=== PATIENT | male | born 1970 | race Caucasian/White ===

== ENCOUNTER 2017-07-15 01:31 | Observation (INO) ==
[2017-07-15] MEDS ORDERED: ASPIRIN 81 MG CHEWABLE TABLET PO ONE (01:44)
[2017-07-15] MEDS: NITROGLYCERIN 0.4 MG SUBLINGUAL TABLET SL PRN ×3 (01:46→02:27)
--- NOTE | 2017-07-15 01:51 | Emergency Department Report ---
Chest Pain HPI - General Chief Complaint: Chest Pain Stated Complaint: chest pains, shortness of breath Time Seen by Provider: 07/15/17 01:44 Source: patient Mode of arrival: ambulatory Limitations: no limitations - History of Present Illness HPI narrative: Patient is a 47-year-old male, prior stenting 2006 by report. Patient has a history of Brugada syndrome, however states that current geospatial scientist does not believe the diagnosis and they're taking his defibrillator out in September, it is currently turned off. Patient does have a history of cath after 2006, stating that his stent was "blocked". Patient presents to the ER for evaluation of chest pain. Patient's is in the hospital post hysterectomy, patient was sitting developed sudden anterior chest pain/pressure across his anterior chest no nausea no diaphoresis. Patient came immediately to the ER for evaluation currently complaining of 7/10 pain. Pain does not radiate to neck shoulders or back. Patient states he does have a history of pancreatitis, was hospitalized at [facility] a week ago. MD complaint: chest pain Occurred At: home Onset (ago): minute(s) Duration: constant Onset: during rest Pain location: substernal, left chest, right chest Severity: moderate Severity scale (1-10): 8 Relieving factors: nitroglycerin Aspirin Today: 81 mg x 4, provided by ED Nitro Today: 0.4 mg x 2, complete relief - Related Data Home Medications Medication Instructions Recorded Confirmed Ativan (lorazepam) 1 mg tablet 1 mg PO Q12H PRN 05/25/17 07/15/17 Glucophage (metformin) 1,000 mg 1,000 mg PO BID 05/25/17 07/15/17 tablet Lantus (insulin glargine) 100 18 unit SQ HS ml 05/25/17 07/15/17 unit/mL SQ Lipitor (atorvastatin) 10 mg tablet 80 mg PO HS 05/25/17 07/15/17 Novolog (insulin aspart) 100 12 units SQ TID 05/25/17 07/15/17 unit/mL Plavix (clopidogrel) 75 mg tablet 75 mg PO DAILY 05/25/17 07/15/17 Prilosec (Omeprazole) 20 mg 20 mg PO DAILY 05/25/17 07/15/17 capsule,delayed release Ultram (Tramadol) 50 mg tablet 50 mg PO PRN PRN 05/25/17 07/15/17 aspirin 81 mg tablet,delayed 1 tab PO DAILY 05/25/17 07/15/17 release cyclobenzaprine 5 mg tablet 5 mg PO PRN PRN 05/25/17 07/15/17 Pregabalin Cap [Lyrica] 25 mg PO DAILY 07/15/17 07/15/17 Allergies Allergy/AdvReac Type Severity Reaction Status Date / Time penicillin G Allergy Verified 07/15/17 01:56 Review of Systems Constitutional: Denies: fever, chills, weakness, weight change Eyes: Denies: eye pain, eye discharge ENT: Denies: ear pain, throat pain, dental pain Cardiovascular: Reports: chest pain, dyspnea on exertion Respiratory: Reports: dyspnea. Denies: cough, wheezes Gastrointestinal: Denies: abdominal pain, nausea, vomiting Musculoskeletal: Denies: back pain Neurological: Denies: headache, weakness, numbness Psychiatric: Denies: anxiety, depression, suicidal thoughts Endocrine: Denies: fatigue, heat or cold intolerance Hematological/Lymphatic: Denies: easy bleeding, easy bruising PFSH Patient Stated Medical History Cerebrovascular Accident Yes Other Cardiology BRUGADA SYNDROME Diabetes Mellitus Type 1 Yes Clinic Medical History (Last Reviewed 05/24/17 @ 17:35 by Stepan Conroy MD) Chest pain, rule out acute myocardial infarction (Acute Medical) Diabetes (Chronic Medical) High cholesterol (Chronic Medical) Medical History Updates: By patient's report hypertension hypercholesterolemia Surgical History: heart stent, scapula bone spur removed, rusty knee arthroscopy, tonsillectomy, Family History: Family History (Last Reviewed 05/24/17 @ 17:35 by Stepan Conroy MD) Mother Heart attack Heart failure - Social History Smoking status: Former smoker Substance use type: does not use Alcohol intake frequency: does not drink Physical Exam - General General appearance: alert, in no apparent distress - Eye Eye exam: Present: normal appearance - ENT ENT exam: Present: normal exam, normal oropharynx - Neck Neck exam: Present: full ROM, trachea midline. Absent: tenderness - Chest Chest inspection: Present: symmetric chest wall rise. Absent: tenderness, rash - Respiratory Respiratory exam: Present: normal lung sounds bilaterally. Absent: respiratory distress, wheezes, stridor - Cardiovascular Cardiovascular exam: Present: regular rate, normal rhythm, normal heart sounds - Abdominal Exam Abdominal exam: Present: soft, normal bowel sounds. Absent: distention, tenderness - Back Exam Back exam: Present: full ROM. Absent: tenderness, CVA tenderness (R), CVA tenderness (L), muscle spasm - Skin Skin exam: Present: warm, dry - Neurological Exam Neurological exam: Present: alert, oriented X3 - Psychiatric Psychiatric exam: Present: normal affect, normal mood Course Vital Signs Temperature 98.2 F 07/15/17 01:33 Pulse Rate 87 07/15/17 01:33 Respiratory Rate 15 07/15/17 01:33 Blood Pressure 158/92 H 07/15/17 01:33 Pulse Oximetry 96 07/15/17 01:33 Temperature 97.8 F 07/15/17 03:21 Pulse Rate 80 07/15/17 03:21 Respiratory Rate 16 07/15/17 03:21 Blood Pressure 126/71 07/15/17 03:21 Pulse Oximetry 96 07/15/17 03:21 Chest Pain - MDM Narrative Medical decision making narrative: Patient's chest pain alleviated by nitroglycerin, patient has multiple risk factors, discussed case with Dr. Eli will admit observation status nitroglycerin paste - Differential Diagnosis Likely: fracture of rib, pneumothorax, stable angina, unstable angina pectoris, atypical chest pain, st elevation myocardial infarction, costochondritis, chest pain, biliary colic - Medical Records Data Attestation: I reviewed the patient's medical records. - Lab Data Attestation: I reviewed the patient's lab results. Result diagrams: 07/15/17 01:45 07/15/17 01:45 Lab Results 07/15/17 07/15/17 07/15/17 Range/Units 01:45 01:45 01:45 WBC 5.8 (4.5-11.0) T/MM3 RBC 4.84 (4.50-5.90) M/MM3 Hgb 12.9 L (13.5-17.5) GM/DL Hct 39.4 L (41-53) % MCV 81.4 (80-100) UM3 MCH 26.7 (26-34) UUG MCHC 32.7 (31-37) GM/DL RDW Std Deviation 39.3 (36.9-50.2) FL Plt Count 176 (130-400) T/MM3 MPV 11.6 (9.4-12.4) UM3 Immature Gran % (Auto) 0.3 (0.0-0.5) % Neut % (Auto) 46.4 (33-66) % Lymph % (Auto) 34.5 (23-45) % Whitley % (Auto) 12.4 H (0-9.0) % Eos % (Auto) 5.2 H (0-4) % Baso % (Auto) 1.2 (0-2) % Neut # (Auto) 2.7 (1.8-7.7) T/MM3 Lymph # (Auto) 2.0 (1-4.8) T/MM3 Whitley # (Auto) 0.7 (0-0.8) T/MM3 Eos # (Auto) 0.3 (0-0.5) T/MM3 Baso # (Auto) 0.1 (0-0.2) T/MM3 Abs Immat Gran (auto) 0.02 (0.00-0.03) T/MM3 D-Dimer < 150 (0-230) NG/ML Turbidity < 20 (0-20) Sodium 140 (134-144) MEQ/L Potassium 3.8 (3.6-5) MEQ/L Chloride 103 (98-107) MEQ/L Carbon Dioxide 26 (22-30) MEQ/L Anion Gap 11 (5-15) MEQ/L BUN 17.0 (9-20) MG/DL Creatinine 0.6 L (0.8-1.5) MG/DL GFR Calculation 143 BUN/Creatinine Ratio 28 H (6-26) RATIO Glucose 219 H (75-110) MG/DL Calculated Osmolality 278 (261-280) MOSM/KG Calcium 9.0 (8.4-10.2) MG/DL Magnesium 1.8 (1.6-2.3) MG/DL Total Bilirubin 0.40 (0.20-1.30) MG/DL Icterus Index < 2 (0-7) AST 25 (17-59) U/L ALT 47 (21-72) U/L Alkaline Phosphatase 159 H (38-126) U/L Troponin I < 0.012 (0-0.12) ng/ml B-Natriuretic Peptide 21.2 (0-175) pg/mL Total Protein 7.5 (6.3-8.2) G/DL Albumin 4.1 (3.5-5.0) G/DL Globulin 3.4 (2.4-3.6) G/DL Albumin/Globulin Ratio 1.2 (1.1-2.2) RATIO Lipase 153 (23-300) U/L TSH 4.00 (0.47-4.68) MIU/L Specimen Hemolysis 32 H (0-25) - Radiology Data Attestation: I reviewed the patient's radiology results. No acute cardiopulmonary findings - EKG Data EKG #1 EKG attestation: Yes: I reviewed and interpreted this EKG. EKG shows normal: sinus rhythm, axis, intervals, QRS complexes, ST-T waves Disposition Clinical Impression: Chest pain, rule out acute myocardial infarction Disposition: 02 To [facility] Condition: Improved Time of Disposition: 02:54 - Seen By: physician
--- OUTSIDE RECORDS SUMMARY | 2017-07-15 02:01 | External Medical Summary ---
:1970 Author Organization eClinicalWorks Care Team Providers Name Role Phone Ar Knutson Provider Role Unavailable Allergies, Adverse Reactions, Alerts Substance Reaction Event Type Simvastatin dizziness Drug Allergy Penicillins rash Non Drug Allergy Sertraline anxious Non Drug Allergy Problems Problem Type Condition ICD-9 Code Onset Dates Condition Status Problem Generalized anxiety disorder 300.02 Active Problem Brugada syndrome 746.89 Active Problem Type II diabetes mellitus, 250.02 Active uncontrolled Problem Mixed hyperlipidemia 272.2 Active Assessment Health examination of defined V70.5 Active subpopulation Medications Medication Code System Code Instructions Start End Date Status Dosage Date Metformin HCl [facility] 17503-991 1000 MG Orally Active 1 tablet 4-01 Twice a day with meals GlipiZIDE [facility] 53391-285 10 MG Once a Active 1 tablet 0-00 day Digoxin [facility] 07787-458 0.25 MG Orally Apr 18, Active 1 tablet 2-01 Once a day 2013 Nicotine Step [address] [facility] 60325-622 21 MG/24HR Active 1 patch to 75 Transdermal Once skin a day Procedures Procedure Coding System Code Date UA- PART OF DOT CPT-4 66301 May 28, 2014 DOT PHYSICAL CPT-4 76715 May 28, 2014 Vital Signs Date/Time: May 28, 2014 BMI 31.13 Index Weight 198.8 lbs Height 67 in Blood Pressure Diastolic 74 mm Hg Blood Pressure Systolic 120 mm Hg Cardiac Monitoring Heart Rate 76 /min Temperature 98.4 F Respiratory Rate 20 /min Results No Known Results Summary Purpose eClinicalWorks Submission
--- OUTSIDE RECORDS SUMMARY | 2017-07-15 02:03 | External Medical Summary ---
:1970 Author Organization eClinicalWorks Care Team Providers Name Role Phone Brenna Archer Provider Role Unavailable Allergies, Adverse Reactions, Alerts Substance Reaction Event Type Simvastatin dizziness Drug Allergy Sertraline HCl anxiety Drug Allergy Penicillin G Potassium rash Drug Allergy Problems Problem Type Condition ICD-9 Code Onset Dates Condition Status Assessment Tobacco use 305.1 Active Assessment Generalized anxiety disorder 300.02 Active Assessment Brugada syndrome 746.89 Active Problem Type II diabetes mellitus, 250.02 Active uncontrolled Problem Generalized anxiety disorder 300.02 Active Problem Tobacco use 305.1 Active Assessment Type II diabetes mellitus, 250.02 Active uncontrolled Assessment Mixed hyperlipidemia 272.2 Active Problem Brugada syndrome 746.89 Active Problem Mixed hyperlipidemia 272.2 Active Medications Medication Code System Code Instructions Start End Date Status Dosage Date Metformin HCl [facility] 82393-366 1000 MG Orally 1 tablet 4-01 [place] [address]-551 0.25 MG Orally Apr 18, 1 tablet 2-01 Once a day 2013 GlipiZIDE [facility] 73424-135 10 MG Orally 1 tablet 0-00 twice a day Procedures Procedure Coding System Code Date OFFICE VISIT EST PATIENT LEVEL 3 CPT-4 75811 December 05, 2014 GLYCOSYLATED HEMOGLOBIN TEST CPT-4 91115 December 05, 2014 Vital Signs Date/Time: December 05, 2014 BMI 29.91 Index Weight 191.0 lbs Height 67 in Blood Pressure Diastolic 80 mm Hg Blood Pressure Systolic 134 mm Hg Cardiac Monitoring Heart Rate 80 /min Temperature 98.4 F Respiratory Rate 18 /min Results No Known Results Summary Purpose eClinicalWorks Submission
--- OUTSIDE RECORDS SUMMARY | 2017-07-15 02:06 | External Medical Summary ---
:1970 Author Name GENERATED, SYSTEM Care Team Providers Name Role Phone DO BARKER MICHAEL Primary Care Provider [phone] Reason For Visit Chief Complaint FATIGUE, ACHES, HIGH BS Social History Functional Status Vital Signs Results Blood Gas from 06/18/2017 6:53 PM*ARTERIAL PH7.408 (7.350-7.450 ) *ARTERIAL IU9243.2 MM HG (35.0-45.0 MM HG) *ART. PO273 MM HG L (80-95 MM HG) *ART. TOTAL CO221.5 mmol/L (20.0-30.0 mmol/L) *ART. CFPBJCDOHOK55.3 MEQ/L (19.0-29.0 MEQ/L) *ART. BASE EXCESS0.2 (-2.5-2.5 ) ART. O2 JUNLIYEVDW81.5 % (91.0-97.0 %) *PATIENT ATMOSPHEREROOM AIR (Reference Range: not available) *SPECIMEN SITEARTERIAL (Reference Range: not available) Blood Gas from 06/18/2017 6:35 PM*VENOUS PH7.434 H (7.320-7.430 ) VENOUS KZV262.2 MM HG L (38.0-50.0 MM HG) *VENOUS QR5239 MM HG H (38-42 MM HG) *VENOUS NKB543.4 mmol/L L (23.0-30.0 mmol/L) CORRIE. PVGUDVMSUXG29.2 MEQ/L (22.0-29.0 MEQ/L) *CORRIE. BASE EXCESS-0.1 (-3.0-3.0 ) CORRIE. O2 LMWYAXQMWR73.4 % H (70.0-80.0 %)Chemistry from 06/18/2017 6:35 [id number] MMOL/L L (136-145 MMOL/L) POTASSIUM4.2 MMOL/L (3.5-5.1 MMOL/L) IDWSWBGL544 MMOL/L (98-107 MMOL/L) OMG866.5 MMOL/L (21.0-32.0 MMOL/L) *ANION GAP8.5 MMOL/L (8.0-16.0 MMOL/L) BUN17 MG/DL (7-18 MG/DL) CREATININE0.99 MG/DL (0.70-1.30 MG/DL) *BUN/CREATININE RATIO17.2 H (9.1-17.0 ) BSXWNWH667 MG/DL H (65-99 MG/DL) *GFR EST NON AFR GBKSDOGG26 ML/MIN (Reference Range: not available) *GFR EST AFR AMER>90 ML/MIN (Reference Range: not available) CALCIUM8.7 MG/DL (8.5-10.1 MG/DL) BILIRUBIN TOTAL0.40 MG/DL (0.20-1.00 MG/DL) TOTAL PROTEIN7.3 GM/DL (6.4-8.2 GM/DL) ALBUMIN3.7 GM/DL (3.4-5.0 GM/DL) *GLOBULIN3.6 GM/DL H (2.3-3.5 GM/DL) *A/G RATIO1.0 L (1.5-2.2 ) ALK AQGQ698 U/L H (46-116 U/L) ALT (SGPT)45 U/L (14-59 U/L) AST (SGOT)27 U/L (15-37 U/L) *SODIUM, [id number] MMOL/L (136-145 MMOL/L) *OSMOLALITY, HAFVTEFJBF971 MOSM/KG (278-305 MOSM/KG) MAGNESIUM1.8 MG/DL (1.8-2.4 MG/DL) PHOSPHORUS3.6 MG/DL (2.6-4.7 MG/DL) TROPONIN-I<0.017 NG/ML (0.000-0.056 NG/ML) KETONE (B-HYDROXY) WB<0.6 MMOL/L (-<0.6 MMOL/L)Hematology from 06/18/2017 6:35 PMWBC5.3 X10e3/UL (3.6-11.2 X10e3/UL) RBC5.14 X10e6/UL (4.06-5.63 X10e6/UL) IRQIULYTIR86.7 G/DL (12.5-16.3 G/DL) BBESFLAOQT00.8 % (36.7-47.1 %) *MCV81.4 FL (80.0-100.0 FL) *MCH26.7 PG L (27.0-33.0 PG) *MCHC32.8 G/DL (32.0-36.0 G/DL) *RDW13.8 % (12.3-17.0 %) *RDWSD39.4 (37.1-47.8 ) SLMGYKEX939 X10e3/UL L (159-386 X10e3/UL) *MPV10.8 FL H (7.4-10.4 FL) AUTOMATED DIFFPERFORMED (Reference Range: not available) SEGS60.1 % (Reference Range: not available) *ZYSQWVOYNTG92.3 % (Reference Range: not available) *LIJENVSIK57.0 % (Reference Range: not available) *EOSINOPHILS3.1 % (Reference Range: not available) *BASOPHILS2.5 % (Reference Range: not available) *ABSOLUTE NEUTROPHILS3.20 X10e3/UL (1.80-7.80 X10e3/UL) *ABSOLUTE LYMPHOCYTES1.30 X10e3/UL (1.00-3.00 X10e3/UL) *ABSOLUTE MONOCYTES0.50 X10e3/UL (0.30-1.00 X10e3/UL) *ABSOLUTE EOSINOPHILS0.20 X10e3/UL (0.00-0.50 X10e3/UL) *ABSOLUTE BASOPHILS0.10 X10e3/UL (0.00-0.20 X10e3/UL)Urinalysis from 06/18/2017 7:00 PM*URINE COLORYELLOW (STRAW/YELL/DK YELL ) *URINE APPEARANCECLEAR (CLEAR ) URINE PH5.5 (5.0-8.0 ) URINE SPECIFIC GRAVITY1.010 (<=1.005->=1.030 ) *URINE GLUCOSE>1000 MG/DL A (NEGATIVE MG/DL) *URINE BILIRUBINNEGATIVE (NEGATIVE ) *URINE KETONESNEGATIVE MG/DL (NEGATIVE MG/DL) *URINE BLOODNEGATIVE (NEGATIVE ) *URINE PROTEINNEGATIVE MG/DL (NEGATIVE MG/DL) *URINE UROBILINOGEN0.2 EU/DL (0.2-1.0 EU/DL) *URINE NITRITESNEGATIVE (NEGATIVE ) *URINE LEUKOCYTESNEGATIVE (NEGATIVE ) Problems Encounter Diagnosis No relevant problems exist. Additional Problems Abdominal Bloating Comment:Problem resolved by [facility] Workflow upon Discharge, Status:Resolved.Acute Pain Comment:Problem resolved by [facility] Workflow upon Discharge, Status:Resolved.Acute Pain Comment:Problem resolved by [facility] Workflow upon Discharge, Status:Resolved.Acute Pain Comment:Problem resolved by [facility] Workflow upon Discharge, Status:Resolved.Acute Pain Comment:Problem resolved by [employer] Workflow upon Discharge, Status:Resolved.Anxiety Comment: Problem resolved by [employer] Workflow upon Discharge, Status:Resolved.Blood Glucose Abnormal Comment:Problem resolved by [employer] Workflow upon Discharge, Status:Resolved.Cerebrovascular Accident Comment:Problem resolved by [employer] Workflow upon Discharge, Status:Resolved.Chest Pain Comment:Problem resolved by [employer] Workflow upon Discharge, Status:Resolved.Chest Pain Comment:Problem resolved by [employer] Workflow upon Discharge, Status:Resolved.Chest Pain Comment: Problem resolved by [employer] Workflow upon Discharge, Status:Resolved.Chest Pain Comment:Problem resolved by [employer] Workflow upon Discharge, Status: Resolved.Chronic Pain Comment:Problem resolved by [employer] Workflow upon Discharge, Status:Resolved.Chronic Pancreatitis Comment:Problem resolved by [employer] Workflow upon Discharge, Status:Resolved.Diabetes Mellitus Comment: Problem resolved by [employer] Workflow upon Discharge, Status:Resolved.Epigastric Pain Comment:Problem resolved by [employer] Workflow upon Discharge, Status: Resolved.Fall Risk Comment:Problem resolved by [employer] Workflow upon Discharge, Status:Resolved.Fall Risk Comment:Problem resolved by [employer] Workflow upon Discharge, Status:Resolved.Fall Risk Comment:Problem resolved by [employer] Workflow upon Discharge, Status:Resolved.Fall Risk Comment:Problem resolved by [employer] Workflow upon Discharge, Status:Resolved.Fall Risk Comment:Problem resolved by [employer] Workflow upon Discharge, Status:Resolved.History of Hypertension Comment:Problem resolved by [employer] Workflow upon Discharge, Status :Resolved.History of Hypertension Comment:Problem resolved by [employer] Workflow upon Discharge, Status:Resolved.History of Raised Blood Lipids Comment:Problem resolved by [employer] Workflow upon Discharge, Status:Resolved.Hx CAD w/ Stent Placement Comment:Problem resolved by [employer] Workflow upon Discharge, Status: Resolved.Mobility Impairment Comment:Problem resolved by [employer] Workflow upon Discharge, Status:Resolved.Mobility Impairment Comment:Problem resolved by [employer] Workflow upon Discharge, Status:Resolved.Mobility Impairment Comment: Problem resolved by [employer] Workflow upon Discharge, Status:Resolved.Nausea &amp ; Vomiting Comment:Problem resolved by [facility] Workflow upon Discharge, Status: Resolved. Encounters Encounter Diagnosis No relevant problems exist. Plan of Care Procedures Completed Procedure Code: [id number] Procedure Name: not valued, on 10/28/2016 12: 00 AM Immunizations No immunizations administered or ordered. Hospital Course Hospital Discharge Instructions Allergies, Adverse Reactions, Alerts This section is printing sales representative of the current allergy information, at the time of the CCD generation. In the case of regeneration of the CCD, the allergy information may not reflect the state of known allergies at the time of the CCD' s subject visit. simvastatin causes disoriented, looses balance.Penicillins causes Moderate Hives. Onset unknown.Latex Allergy has not been assessed.IV Contrast Allergy has not been assessed.No Known Food Allergies. Medication Medication reconciliation has not been performed.
--- OUTSIDE RECORDS SUMMARY | 2017-07-15 02:06 | External Medical Summary ---
:1970 Author Organization eClinicalWorks Care Team Providers Name Role Phone Brenna Archer Provider Role Unavailable Allergies No Known Allergies Problems Problem Type Condition ICD-9 Code Onset Dates Condition Status Problem Generalized anxiety disorder 300.02 Active Problem Brugada syndrome 746.89 Active Problem Type II diabetes mellitus, 250.02 Active uncontrolled Problem Smoker 305.1 Active Problem Mixed hyperlipidemia 272.2 Active Medications Medication Code System Code Instructions Start End Date Status Dosage Date Metformin HCl [facility] 97745-568 1000 MG Orally 1 tablet 4-01 Twice a day with meals Results No Known Results Summary Purpose eClinicalWorks Submission
--- OUTSIDE RECORDS SUMMARY | 2017-07-15 02:06 | External Medical Summary ---
:1970 Author Organization eClinicalWorks Care Team Providers Name Role Phone Brenna Archer Provider Role Unavailable Allergies No Known Allergies Problems Problem Type Condition Code Onset Dates Condition Status Problem Brugada syndrome I49.8 Active Problem Hypertriglyceridemia E78.1 Active Problem DM type 2 (diabetes mellitus, type E11.9 Active 2) Problem Tobacco use 305.1 Active Problem Generalized anxiety disorder 300.02 Active Medications Medication Code System Code Instructions Start Date End Date Status Dosage [facility] [address] 10 MG Orally 1 tablet -00 twice a day Results No Known Results Summary Purpose eClinicalWorks Submission
--- OUTSIDE RECORDS SUMMARY | 2017-07-15 02:06 | External Medical Summary ---
:1970 Author Organization eClinicalWorks Care Team Providers Name Role Phone [address] Lane Provider Role Unavailable Allergies, Adverse Reactions, Alerts Substance Reaction Event Type Penicillin Info Not Available Drug Allergy Simvastatin Info Not Available Drug Allergy Problems Problem Type Condition ICD-9 Code Onset Dates Condition Status Assessment Brugada Syndrome 746.89 Active Problem Dyslipidemia 272.4 Active Problem Family history of ischemic heart V17.3 Active disease Problem s/p stenting, coronary V45.82 Active Problem Chest pain 786.50 Active Problem Coronary Artery Disease 414.01 Active Problem Brugada Syndrome 746.89 Active Problem Obesity, unspecified 278.00 Active Problem Shortness Of Breath 786.05 Active Problem Diabetes Mellitus, Type II, Not 250.00 Active Stated As Uncontrolled Assessment Obesity, unspecified 278.00 Active Assessment Dyslipidemia 272.4 Active Assessment Diabetes Mellitus, Type II, Not 250.00 Active Stated As Uncontrolled Assessment Chest pain 786.50 Active Assessment Shortness Of Breath 786.05 Active Assessment Family history of ischemic heart V17.3 Active disease Medications Medication Code System Code Instructions Start Date End Date Status Dosage GlipiZIDE [facility] 85131-941 10 mg Orally 1 tablet 0-10 Twice a day Metformin HCl [facility] 53249-011 1000 mg Orally 1 tablet 4-01 Twice a day Procedures Procedure Coding System Code Date Office Visit, New Pt., Level 4 CPT-4 38708 Apr 06, 2015 ELECTROCARDIOGRAM, COMPLETE CPT-4 79901 Apr 06, 2015 Vital Signs Date/Time: Apr 06, 2015 BMI 30.79 Index Weight 196.6 lbs Height 5 ft 7 in in Cardiac Monitoring Heart Rate 100 /min Oximetry 98% % Blood Pressure Diastolic 74 mm Hg Blood Pressure Systolic 128 mm Hg Results Name Result Date Reference Range Unit Abnormality Flag Atria ECG Summary Purpose eClinicalWorks Submission
--- OUTSIDE RECORDS SUMMARY | 2017-07-15 02:07 | External Medical Summary ---
:1970 Author Organization eClinicalWorks Care Team Providers Name Role Phone Calixto Lane Provider Role Unavailable Allergies, Adverse Reactions, Alerts Substance Reaction Event Type Penicillin Info Not Available Drug Allergy Simvastatin Info Not Available Drug Allergy Problems Problem Type Condition Code Onset Dates Condition Status Assessment Brugada [...] Instructions Start Date End Date Status Dosage Metformin HCl [facility] 10421-851 1000 mg Orally 1 tablet 4-01 Twice a day GlipiZIDE [facility] 62174-610 10 mg Orally 1 tablet 0-10 Twice a day Procedures Procedure Coding System Code Date Office Visit, Est Pt., Level 3 CPT-4 44266 Sep 10, 2015 Ofc Program ICD Dual, Staff CPT-4 53437 Sep 10, 2015 ELECTROCARDIOGRAM, COMPLETE CPT-4 66033 Sep 10, 2015 Vital Signs Date/Time: Sep 10, 2015 BMI 29.57 Index Weight 188.8 lbs Height 5 ft 7 in in Cardiac Monitoring Heart Rate 87 /min Oximetry 98% % Blood Pressure Diastolic 68 mm Hg Blood Pressure Systolic 118 mm Hg Results Name Result Date Reference Range Unit Abnormality Flag Atria ECG Summary Purpose eClinicalWorks Submission
--- OUTSIDE RECORDS SUMMARY | 2017-07-15 02:07 | External Medical Summary ---
:1970 Author Organization eClinicalWorks Care Team Providers Name Role Phone Brenna Archer Provider Role Unavailable Allergies, Adverse Reactions, Alerts Substance Reaction Event Type Simvastatin dizziness Drug Allergy Sertraline HCl anxiety Drug Allergy Penicillin G Potassium rash Drug Allergy Problems Problem Type Condition Code Onset Dates Condition Status Assessment Hypertriglyceridemia E78.1 Active Assessment Right groin pain R10.30 Active Problem Brugada syndrome I49.8 Active Problem Hypertriglyceridemia E78.1 Active Problem DM type 2 (diabetes mellitus, type E11.9 Active 2) Assessment DM type 2 (diabetes mellitus, type E11.9 Active 2) Assessment Brugada syndrome I49.8 Active Problem Tobacco use 305.1 Active Problem Generalized anxiety disorder 300.02 Active Medications Medication Code System Code Instructions Start End Date Status Dosage Date Digoxin [facility] 41120-863 0.25 MG Orally Apr 18, 1 tablet 2-01 Once a day 2013 GlipiZIDE [facility] 38614-395 10 MG Orally 1 tablet 0-00 twice a day Metformin HCl [facility] 91801-675 1000 MG Orally 1 tablet 4-01 Twice a day with meals Procedures Procedure Coding System Code Date OFFICE VISIT EST PATIENT LEVEL 3 CPT-4 17337 Jun 29, 2015 GLYCOSYLATED HEMOGLOBIN TEST CPT-4 90299 Jun 29, 2015 Vital Signs Date/Time: Jun 29, 2015 BMI 29.79 Index Weight 190.2 lbs Height 67 in Blood Pressure Diastolic 78 mm Hg Blood Pressure Systolic 126 mm Hg Cardiac Monitoring Heart Rate 78 /min Temperature 98.1 F Respiratory Rate 18 /min Results No Known Results Summary Purpose eClinicalWorks Submission
--- OUTSIDE RECORDS SUMMARY | 2017-07-15 02:07 | External Medical Summary ---
:1970 Author Name GENERATED, SYSTEM Care Team Providers Name Role Phone DO BARKER MICHAEL Primary Care Provider [phone] Reason For Visit Chief Complaint RIGHT FACIAL NUMBNESS, BACK PAIN Social History Functional Status Vital Signs Results Blood Gas from 07/04/2017 3:34 AM*VENOUS PH7.414 (7.320-7.430 ) VENOUS KXE393.6 MM HG (38.0-50.0 MM HG) *VENOUS PO279 MM HG H (38-42 MM HG) *VENOUS RDC570.9 mmol/L L (23.0-30.0 mmol/L) CORRIE. NCYLFOEYDFX77.1 MEQ/L (22.0-29.0 MEQ/L) *CORRIE. BASE EXCESS1.9 (-3.0-3.0 ) CORRIE. O2 LSPGOFQBSA10.0 % H (70.0-80.0 %)Chemistry from 07/04/2017 3:34 YMOZLSJL698 MMOL/L (136-145 MMOL/L) POTASSIUM3.9 MMOL/L (3.5-5.1 MMOL/L) CSFEEWRQ06 MMOL/L (98-107 MMOL/L) GTA802.6 MMOL/L (21.0-32.0 MMOL/L) *ANION GAP9.4 MMOL/L (8.0-16.0 MMOL/L) BUN16 MG/DL (7-18 MG/DL) CREATININE0.75 MG/DL (0.70-1.30 MG/DL) *BUN/CREATININE RATIO21.3 H (9.1-17.0 ) UGQFVNT350 MG/DL H (65-99 MG/DL) *GFR EST NON AFR SURINAMESE>90 ML/MIN (Reference Range: not available) *GFR EST AFR AMER>90 ML/MIN (Reference Range: not available) XQZODYW78.0 MG/DL (8.5-10.1 MG/DL) BILIRUBIN TOTAL0.40 MG/DL (0.20-1.00 MG/DL) TOTAL PROTEIN7.4 GM/DL (6.4-8.2 GM/DL) ALBUMIN3.8 GM/DL (3.4-5.0 GM/DL) *GLOBULIN3.6 GM/DL H (2.3-3.5 GM/DL) *A/G RATIO1.1 L (1.5-2.2 ) ALK VRXI117 U/L (46-116 U/L) ALT (SGPT)53 U/L (14-59 U/L) AST (SGOT)30 U/L (15-37 U/L) *SODIUM, IMGUVXIIV048 MMOL/L (136-145 MMOL/L) *OSMOLALITY, HWLGLIGTIH523 MOSM/KG (278-305 MOSM/KG) MAGNESIUM1.6 MG/DL L (1.8-2.4 MG/DL) PHOSPHORUS4.9 MG/DL H (2.6-4.7 MG/DL) TROPONIN-I<0.017 NG/ML (0.000-0.056 NG/ML) KETONE (B-HYDROXY) WB<0.6 MMOL/L (-<0.6 MMOL/L)Hematology from 07/04/2017 3:34 AMWBC6.1 X10e3/UL (3.6-11.2 X10e3/UL) RBC5.35 X10e6/UL (4.06-5.63 X10e6/UL) RRERNHTOBI33.2 G/DL (12.5-16.3 G/DL) YDAJEPQTPU27.0 % (36.7-47.1 %) *MCV80.4 FL (80.0-100.0 FL) *MCH26.5 PG L (27.0-33.0 PG) *MCHC33.0 G/DL (32.0-36.0 G/DL) *RDW13.9 % (12.3-17.0 %) *RDWSD39.4 (37.1-47.8 ) SBGKMYOF991 X10e3/UL L (159-386 X10e3/UL) *MPV9.2 FL (7.4-10.4 FL) AUTOMATED DIFFPERFORMED (Reference Range: not available) SEGS55.6 % (Reference Range: not available) *GVQIPLVXIEA78.7 % (Reference Range: not available) *EAQNVXOTH95.6 % (Reference Range: not available) *EOSINOPHILS4.0 % (Reference Range: not available) *BASOPHILS1.1 % (Reference Range: not available) *ABSOLUTE NEUTROPHILS3.40 X10e3/UL (1.80-7.80 X10e3/UL) *ABSOLUTE LYMPHOCYTES1.80 X10e3/UL (1.00-3.00 X10e3/UL) *ABSOLUTE MONOCYTES0.70 X10e3/UL (0.30-1.00 X10e3/UL) *ABSOLUTE EOSINOPHILS0.20 X10e3/UL (0.00-0.50 X10e3/UL) *ABSOLUTE BASOPHILS0.10 X10e3/UL (0.00-0.20 X10e3/UL)Coagulation from 2016 3:34 AM*PROTHROMBIN TIME10.9 SECONDS (9.4-11.5 SECONDS) *INR1.02 (0.90-1.10 ) PARTIAL THROMBOPLASTIN TIME24.2 SECONDS (23.0-31.0 SECONDS)CT Scan from 2016 3:02 AMCT CEREBRAL W/O CONTRASTHistory: paresthesia right face . Priors: CT of the head dated 06/18/2017 Findings: Ventricles and Extra axial spaces: Normal in size and morphology for the patient's age. Hemorrhage: None. Cerebral parenchyma: Normal. Mass effect/midline shift: None. Brainstem/Cerebellum: Normal. Calvarium: Normal. Visualized Paranasal sinuses/Mastoids: Clear. Impression: No acute intracranial abnormality. Electronically signed by: Lary Mejia MD Dictated: 07/04/2017 10:04 (Reference Range: not available) Problems Encounter Diagnosis No relevant problems exist. [...] Plan of Care Procedures Completed Procedure Code: [id number] Procedure Name: not valued, on 10/28/2016 12: 00 AM Immunizations No immunizations administered or ordered. Hospital Course Hospital Discharge Instructions Allergies, Adverse Reactions, Alerts This section is practice representative of the current allergy information, at [...]
--- OUTSIDE RECORDS SUMMARY | 2017-07-15 02:07 | External Medical Summary ---
:1970 Author Organization eClinicalWorks Care Team Providers Name Role Phone Ar Knutson Provider Role Unavailable Allergies No Known Allergies Problems Problem Type Condition ICD-9 Code Onset Dates Condition Status Problem Generalized anxiety disorder 300.02 Active Problem Brugada syndrome 746.89 Active Problem Type II diabetes mellitus, 250.02 Active uncontrolled Assessment Routine general medical V70.0 Active examination at health care facility Problem Smoker 305.1 Active Problem Mixed hyperlipidemia 272.2 Active Medications Medication Code System Code Instructions Start End Date Status Dosage Date Ibuprofen [facility] 51521-448 800 MG Orally Jul 14, Oct 12, 1 tablet 2-00 Three times a day 2013 2014 Digoxin [facility] 58039-781 0.25 MG Orally Apr 18, 1 tablet 2-01 Once a day 2013 Metformin HCl [facility] 80598-644 1000 MG Orally 1 tablet 4-01 Twice a day with meals GlipiZIDE [facility] 46641-329 10 MG Orally 1 tablet 0-00 twice a day Procedures Procedure Coding System Code Date Collection of drug screen CPT-4 JUANA Oct 10, 2014 Results No Known Results Summary Purpose eClinicalWorks Submission
--- OUTSIDE RECORDS SUMMARY | 2017-07-15 02:10 | External Medical Summary ---
:1970 Author Name GENERATED, SYSTEM Care Team Providers Name Role Phone DO BARKER MICHAEL Primary Care Provider [phone] Reason For Visit Reason for Visit from 07/08/2017 10:30 AM:Pt Stated Reason for Adm : Pancreatitis Chief Complaint PANCREATITIS Social History Social History from 07/10/2017 10:06 AM:Tobacco Use? : Former SmokerSocial History from 07/08/2017 10:30 AM:Tobacco Use? : Former Smoker Functional Status Functional Status from 07/10/2017 7:19 AM:LOC : AlertOriented To : Person,Place, Time,EventWeight Bearing Status : FullAssist Level : Partial# Assists : 1Functional Status from 07/09/2017 8:25 PM:LOC : AlertOriented To : Person,Place, Time,EventWeight Bearing Status : FullAssist Level : Independent# Assists : IndependentFunctional Status from 07/09/2017 2:32 PM:# Assists : 2Functional Status from 07/09/2017 8:25 AM:LOC : AlertOriented To : Person,Place,Time, EventWeight Bearing Status : FullAssist Level : Independent# Assists : IndependentFunctional Status from 07/08/2017 7:30 PM:LOC : AlertOriented To : Person,Place,Time,EventWeight Bearing Status : FullAssist Level : Partial# Assists : 1Functional Status from 07/08/2017 10:30 AM:LOC : AlertOriented To : Person,Place,Time,EventWeight Bearing Status : FullAssist Level : Partial# Assists : 1 Vital Signs Hospital Vital Signs from 07/10/2017 9:10 AM:Height : 5/7 ft,inHospital Vital Signs from 07/10/2017 7:07 AM:Height : 5/7 ft,inTemperature : 96.9 FPulse : 79Respirations : 18BP : 154/91Hospital Vital Signs from 07/09/2017 10:15 PM: Height : 5/7 ft,inTemperature : 98.4 FPulse : 71Respirations : 18BP : 159/ 87Hospital Vital Signs from 07/09/2017 2:29 PM:Height : 5/7 ft,inHospital Vital Signs from 07/09/2017 2:14 PM:Height : 5/7 ft,inTemperature : 97.1 FPulse : 75Respirations : 18BP : 142/77Hospital Vital Signs from 07/09/2017 7:06 AM: Height : 5/7 ft,inTemperature : 97.2 FPulse : 79Respirations : 18BP : 130/ 74Hospital Vital Signs from 07/08/2017 10:12 PM:Height : 5/7 ft,inTemperature : 97.2 FPulse : 72Respirations : 18BP : 136/82Hospital Vital Signs from 07/08/2017 2:21 PM:Height : 5/7 ft,inTemperature : 97.7 FPulse : 79Respirations : 18BP : 125/80Hospital Vital Signs from 07/08/2017 10:30 AM:Weight : 85.2/ kgHeight : 5/ 7 ft,inHospital Vital Signs from 07/08/2017 9:44 AM:Weight : 85.2/ kgHeight : 5/ 7 ft,inTemperature : 97.8 FPulse : 70Respirations : 18BP : 114/66 Results Chemistry from 07/10/2017 5:23 KFHARCSN258 MMOL/L (136-145 MMOL/L) POTASSIUM3.9 MMOL/L (3.5-5.1 MMOL/L) FYMLZYRS607 MMOL/L (98-107 MMOL/L) KNJ673.4 MMOL/L (21.0-32.0 MMOL/L) *ANION GAP4.6 MMOL/L L (8.0-16.0 MMOL/L) BUN8 MG/DL (7-18 MG/DL) CREATININE0.63 MG/DL L (0.70-1.30 MG/DL) *BUN/CREATININE RATIO12.7 (9.1-17.0 ) SFSSNCV830 MG/DL H (65-99 MG/DL) *GFR EST NON AFR BURKINAN>90 ML/MIN (Reference Range: not available) *GFR EST AFR AMER>90 ML/MIN (Reference Range: not available) CALCIUM8.4 MG/DL L (8.5-10.1 MG/DL) BILIRUBIN TOTAL0.90 MG/DL (0.20-1.00 MG/DL) TOTAL PROTEIN6.7 GM/DL (6.4-8.2 GM/DL) ALBUMIN3.4 GM/DL (3.4-5.0 GM/DL) *GLOBULIN3.3 GM/DL (2.3-3.5 GM/DL) *A/G RATIO1.0 L (1.5-2.2 ) ALK PHOS93 U/L (46-116 U/L) ALT (SGPT)39 U/L (14-59 U/L) AST (SGOT)23 U/L (15-37 U/L) MAGNESIUM1.8 MG/DL (1.8-2.4 MG/DL) NKZDQNI80 U/L (25-115 U/L) RPMYZL414 U/L (73-393 U/L)Chemistry from 07/09/2017 5:19 XGZCIWGO905 MMOL/L (136- 145 MMOL/L) POTASSIUM3.9 MMOL/L (3.5-5.1 MMOL/L) XHVGDIDJ729 MMOL/L (98-107 MMOL/L) SOW358.5 MMOL/L (21.0-32.0 MMOL/L) *ANION GAP4.5 MMOL/L L (8.0-16.0 MMOL/L) BUN12 MG/DL (7-18 MG/DL) CREATININE0.64 MG/DL L (0.70-1.30 MG/DL) *BUN/CREATININE RATIO18.8 H (9.1-17.0 ) BLWDKCR383 MG/DL H (65-99 MG/DL) *GFR EST NON AFR BURKINAN>90 ML/MIN (Reference Range: not available) *GFR EST AFR AMER>90 ML/MIN (Reference Range: not available) CALCIUM8.1 MG/DL L (8.5-10.1 MG/DL) BILIRUBIN TOTAL0.90 MG/DL (0.20-1.00 MG/DL) TOTAL PROTEIN6.4 GM/DL (6.4-8.2 GM/DL) ALBUMIN3.2 GM/DL L (3.4-5.0 GM/DL) *GLOBULIN3.2 GM/DL (2.3-3.5 GM/DL) *A/G RATIO1.0 L (1.5-2.2 ) ALK PHOS83 U/L (46-116 U/L) ALT (SGPT)43 U/L (14-59 U/L) AST (SGOT)28 U/L (15-37 U/L) NTOHHJLIITH091 MG/DL (50-199 MG/DL) VPJWRFLKXKITE059 MG/DL H (0-149 MG/DL) HDL MSCISMXBMHO17 MG/DL L (40-60 MG/DL) *LDL (CALCULATED) CHOL80 MG/DL (0-99 MG/DL)Hematology from 07/10/2017 5:23 AMWBC4.5 X10e3/UL (3.6-11.2 X10e3/UL) RBC5.02 X10e6/UL (4.06-5.63 X10e6/UL) LRTSQUJUMH89.3 G/DL (12.5-16.3 G/DL) SOIFYAXXXR99.5 % (36.7-47.1 %) *MCV80.6 FL (80.0-100.0 FL) *MCH26.4 PG L (27.0-33.0 PG) *MCHC32.8 G/DL (32.0-36.0 G/DL) *RDW13.9 % (12.3-17.0 %) *RDWSD39.4 (37.1-47.8 ) KWMNKOBL729 X10e3/UL L (159-386 X10e3/UL) *MPV9.0 FL (7.4-10.4 FL)Hematology from 07/09/2017 5:19 AMWBC5.1 X10e3/UL (3.6- 11.2 X10e3/UL) RBC4.96 X10e6/UL (4.06-5.63 X10e6/UL) PWKDTUKPCF52.2 G/DL (12.5-16.3 G/DL) FSXGDTQDCD79.2 % (36.7-47.1 %) *MCV81.1 FL (80.0-100.0 FL) *MCH26.6 PG L (27.0-33.0 PG) *MCHC32.8 G/DL (32.0-36.0 G/DL) *RDW13.9 % (12.3-17.0 %) *RDWSD40.3 (37.1-47.8 ) CCKMECQD452 X10e3/UL L (159-386 X10e3/UL) *MPV9.9 FL (7.4-10.4 FL) AUTOMATED DIFFPERFORMED (Reference Range: not available) SEGS61.1 % (Reference Range: not available) *VUEKNHHZTCM64.7 % (Reference Range: not available) *MONOCYTES9.7 % (Reference Range: not available) *EOSINOPHILS4.6 % (Reference Range: not available) *BASOPHILS0.9 % (Reference Range: not available) *ABSOLUTE NEUTROPHILS3.10 X10e3/UL (1.80-7.80 X10e3/UL) *ABSOLUTE LYMPHOCYTES1.20 X10e3/UL (1.00-3.00 X10e3/UL) *ABSOLUTE MONOCYTES0.50 X10e3/UL (0.30-1.00 X10e3/UL) *ABSOLUTE EOSINOPHILS0.20 X10e3/UL (0.00-0.50 X10e3/UL) *ABSOLUTE BASOPHILS0.00 X10e3/UL (0.00-0.20 X10e3/UL) Problems Encounter Diagnosis Acute Pain Status:Active.Acute Pancreatitis Status:Active.Diabetes Mellitus, Type 2 Status:Active.Fall Risk Status:Active.History of CVA Status: Active.Additional Problems Abdominal Bloating Comment:Problem resolved by [facility] Workflow upon Discharge, Status:Resolved.Anxiety Comment:Problem resolved by [facility] Workflow upon Discharge, Status:Resolved.Blood Glucose Abnormal Comment:Problem resolved by [facility] Workflow upon Discharge, Status:Resolved.Cerebrovascular Accident Comment:Problem resolved by [facility] Workflow upon Discharge, Status: Resolved.Chest Pain Comment:Problem resolved by [facility] Workflow upon Discharge , Status:Resolved.Chest Pain Comment:Problem resolved by [facility] Workflow upon Discharge, Status:Resolved.Chest Pain Comment:Problem resolved by [facility] Workflow upon Discharge, Status:Resolved.Chest Pain Comment:Problem resolved by [facility] Workflow upon Discharge, Status:Resolved.Chronic Pain Comment:Problem resolved by [facility] Workflow upon Discharge, Status:Resolved.Chronic Pancreatitis Comment:Problem resolved by [facility] Workflow upon Discharge, Status :Resolved.Diabetes Mellitus Comment:Problem resolved by [facility] Workflow upon Discharge, Status:Resolved.Epigastric Pain Comment:Problem resolved by [facility] Workflow upon Discharge, Status:Resolved.History of Hypertension Comment: Problem resolved by [facility] Workflow upon Discharge, Status:Resolved.History of Hypertension Comment:Problem resolved by [facility] Workflow upon Discharge, Status :Resolved.History of Raised Blood Lipids Comment:Problem resolved by [facility] Workflow upon Discharge, Status:Resolved.Hx CAD w/ Stent Placement Comment: Problem resolved by [facility] Workflow upon Discharge, Status:Resolved.Mobility Impairment Comment:Problem resolved by [facility] Workflow upon Discharge, Status: Resolved.Mobility Impairment Comment:Problem resolved by [facility] Workflow upon Discharge, Status:Resolved.Mobility Impairment Comment:Problem resolved by [facility] Workflow upon Discharge, Status:Resolved.Nausea & Vomiting Comment: Problem resolved by [facility] Workflow upon Discharge, Status:Resolved. Encounters Encounter Diagnosis Acute Pain Status:Active.Acute Pancreatitis Status:Active.Diabetes Mellitus, Type 2 Status:Active.Fall Risk Status:Active.History of CVA Status:Active. Plan of Care Follow-up Appointments from 07/10/2017 10:06 AM:#1 Office appointment: : Dr.Kim Archer#1 Date/Time : 07/18/2017 12:00 PMAddress # 1 : [facility] : [address], [facility] Treatment Plan from 07/09/2017 10: 03 AM:Care Management Note : BODY,TD,TH,BUTTON,INPUT,SELECT,TEXTAREA{FONT-SIZE: 10pt; FONT-FAMILY: Register,Helvetica; COLOR: black;} P,DIV,UL,OL,BLOCKQUOTE{MARGIN -BOTTOM: 0px; MARGIN-TOP: 0px;} BODY{MARGIN: 5px;}Inpatient status in a medical bed being treated for acute pancreatitis. Presented to ED with 2 week history of epigastric pain and nausea with new onset dizziness and racing palpitations.Patient has received 8 doses of IV Dilaudid since admissionED vitals: 125/84 temp 96.7, pulse 81 resp 20 sat 95% RALab: Lipase 1233POC: NPO except ice chips and medsIVF 175 hourDilaudid IV every 2-3 hours prn painZofran IV and po prnhome medsaccuchecks/sliding scale insulinLovenox gmsru81-7:vitals: temp 97.2, pulse 79, resp 18 sat 94% RA 130/74Meets medical necessity for inpatient level of care. Care management will follow and assess for discharge needs. Procedures Completed Procedure Code: [id number] Procedure Name: not valued, on 10/28/2016 12: 00 AM Immunizations PNEUMOCOCCAL 23-LANNY P-SAC VAC (PNEUMOVAX 23, [employer] [address], Lot # [id number] ); Administered 07/10/2017 10:48 AM; 1 DOSE=0.5 ML, IntramuscularINFLUEN VACC (GLAXO) (FLUARIX 2016- (GLAXO), [employer], Lot # [id number]); Administered 07/10/2017 10:48 AM; 1 DOSE=0.5 ML, Intramuscular Hospital Course Hospital Discharge Instructions How to care for yourself at home from 07/10/2017 10:06 AM:Discharge Activity : Activity as toleratedDischarge Diet : Modification as given by physicianDischarge Diet: : No Added Salt; Diabetic 1800; Low Fat, Low CholesterolCall your doctor if: : Fever over 101 F or severe chills,Chest pain or other unexplained symptoms,Tingling or numbness develops,A sudden increase or decrease in weightSpecific Discharge Teaching Instructions provided: : NoDischarge on Warfarin : No Allergies, Adverse Reactions, Alerts This section is aircraft sales representative of the current allergy information, at the time of the CCD generation. In the case of regeneration of the CCD, the allergy information may not reflect the state of known allergies at the time of the CCD' s subject visit. simvastatin causes disoriented, looses balance.Penicillins causes Moderate Hives. Onset unknown.No Latex Allergy.No IV Contrast Allergy.No Known Food Allergies. Medication It is the responsibility of the patient or patient aircraft sales representative to confirm the list of medicationswith either the patient's personal care provider or the patient's follow-up care provider to ensure the patient has an appropriate list of medications to take at home. Discharge medicationsNew medicationsmetoclopramide HCl (Reglan) 5 mg Tablet, Ordered By: MARK MUELLER MD Directions: 1 tablet oral twice a day before meals and at bedtime Continued medicationsaspirin (Aspirin Low Dose) 81 mg tablet,delayed release (DR /EC), Ordered By: MARK MUELLER MD Directions: 1 tablet oral daily atorvastatin 80 mg Tablet, Ordered By: MARK MUELLER MD Directions: 1 tablet oral daily at bedtime clopidogrel 75 mg Tablet, Ordered By: MARK MUELLER MD Directions: 1 tablet oral daily insulin aspart (NovoLOG Flexpen) 100 unit/mL Insulin Pen, Ordered By: MARK MUELLER MD Directions: 12 unit subcutaneous three times a day with or after meal insulin glargine (LanTUS Solostar) 100 unit/mL (3 mL) Insulin Pen, Ordered By: MARK MUELLER MD Directions: 18 unit subcutaneous daily at bedtime LORazepam 1 mg Tablet, Ordered By: MARK MUELLER MD Directions: 1 tablet oral daily PRN anxiety metFORMIN 1,000 mg Tablet, Ordered By: MARK MUELLER MD Directions: 1 tablet oral daily with or after meal omeprazole 20 mg capsule,delayed release(DR/EC), Ordered By: MARK MUELLER MD Directions: 1 capsule oral daily before breakfast pregabalin (Lyrica) 25 mg Capsule, Ordered By: MARK MUELLER MD Directions: 1 capsule oral twice a day traMADol 50 mg Tablet, Ordered By: MARK MUELLER MD Directions: 1 tablet oral every six hours PRN pain Stopped medicationsNone
--- OUTSIDE RECORDS SUMMARY | 2017-07-15 02:15 | External Medical Summary ---
:1970 Author Organization eClinicalWorks Care Team Providers Name Role Phone [address] Provider Role Unavailable Allergies No Known Allergies Problems Problem Type Condition Code Onset Dates Condition Status Problem Dyslipidemia 272.4 Active Problem Family history of ischemic heart V17.3 Active disease Problem s/p stenting, coronary V45.82 Active Problem Chest pain 786.50 Active Problem Coronary Artery Disease 414.01 Active Problem Brugada Syndrome 746.89 Active Problem Obesity, unspecified 278.00 Active Problem Shortness Of Breath 786.05 Active Problem Diabetes Mellitus, Type II, Not 250.00 Active Stated As Uncontrolled Medications No Known Medications Results No Known Results Summary Purpose eClinicalWorks Submission
--- OUTSIDE RECORDS SUMMARY | 2017-07-15 02:18 | External Medical Summary ---
:1970 Author Organization eClinicalWorks Care Team Providers Name Role Phone Brenna Archer Provider Role Unavailable Allergies No Known Allergies Problems Problem Type Condition ICD-9 Code Onset Dates Condition Status Problem Type II diabetes mellitus, 250.02 Active uncontrolled Problem Generalized anxiety disorder 300.02 Active Problem Tobacco use 305.1 Active Problem Brugada syndrome 746.89 Active Problem Mixed hyperlipidemia 272.2 Active Medications Medication Code System Code Instructions Start Date End Date Status Dosage GlipiZIDE [facility] [address] 10 MG Orally 1 tablet -00 twice a day Results No Known Results Summary Purpose eClinicalWorks Submission
--- OUTSIDE RECORDS SUMMARY | 2017-07-15 02:22 | External Medical Summary ---
:1970 Author Name GENERATED, SYSTEM Care Team Providers Name Role Phone DO BARKER MICHAEL Primary Care Provider [phone] Reason For Visit Chief Complaint FALL, LOWER BACK PAIN Social History Functional Status Vital Signs Results DX Radiology from 06/19/2017 1:41 PMPELVIS / VIEWSHistory: pain fall . Priors: 01/01/2016 Findings: There is no fracture or dislocation. The hip joints are normal. The SI joints and symphysis pubis are within normal limits. Impression: Unremarkable radiographs of the pelvis. Electronically signed by: Loi Nelson MD Dictated: 06/19/2017 13:50 (Reference Range: not available) SHOULDER LEFT 2 VIEWS MINHistory: Left shoulder pain after fall Technique: 3 view shoulder Priors: None. Findings: There is no fracture. The acromiocavicular joint is within normal limits. The glenohumeral joint is well maintained. Impression: Unremarkable radiographs of the left shoulder. Electronically signed by: Loi Nelson MD Dictated: 06/19/2017 13:56 (Reference Range: not available) WRIST LEFT 3 VIEWSHistory: Left wrist pain after fall Technique: 3 view wrist Findings: There is no acute fracture or subluxation. The distal radius and ulna are intact. The carpals are normally aligned. Impression: Unremarkable radiographs of the left wrist. Electronically signed by: Loi Nelson MD Dictated: 06/19/2017 13:57 (Reference Range: not available) CT Scan from 06/19/2017 1:25 PMCT SPINE CERVICAL W/O CONTRASTHistory: Fall from standing with back pain. Priors: None. Findings: Cervical alignment is within normal limits. There is no acute fracture. There is mild disc space narrowing at C4-5 and C5-6 consistent mild degenerative disc disease. No focal disc protrusions or significant central spinal stenosis is identified. The soft tissues are unremarkable. The lung apices are unremarkable. Impression: Mild cervical spondylosis without acute fracture. Electronically signed by: Loi Nelson MD Dictated: 06/19/2017 13:50 (Reference Range: not available) CT SPINE LUMBAR W/O CONTRASTHistory: Fall. Back pain. Priors: None. Findings: Lumbar alignment is within normal limits No acute fractures are identified There is mild disc space narrowing at all levels lumbar spine with mild generalized disc bulging. No focal disc protrusions or significant central spinal stenosis is identified. The visualized abdominal structures are unremarkable. Placenta is been 4 mm nonobstructing caliceal stone lower pole the left kidney. Impression: Mild lumbar spondylosis without acute fracture. Left nephrolithiasis Electronically signed by: Loi Nelson MD Dictated: 06/19/2017 13:56 (Reference Range: not available) CT SPINE THORACIC W/O CONTRASTHistory: Fall. Back pain Priors: None. Findings: Thoracic alignment is within normal limits No acute Fractures or subluxations are identified Disc spaces are well maintained. No focal disc protrusions or significant central spinal stenosis is identified. Impression: Unremarkable CT of the thoracic spine. Electronically signed by: Loi Nelson MD Dictated: 06/19/2017 13:51 (Reference Range: not available) Problems Encounter Diagnosis [...] Plan of Care Procedures Completed Procedure Code: [id number] Procedure Name: not valued, on 10/28/2016 12: 00 AM Immunizations No immunizations administered or ordered. Hospital Course Hospital Discharge Instructions Allergies, Adverse Reactions, Alerts This section is textiles sales representative of the current allergy information, [...]
[2017-07-15] MEDS: SALINE FLUSH 10ml SYRINGE IVF PRN ×2 (02:31→03:12)
[2017-07-15] MEDS ORDERED: NITROGLYCERIN 2% OINTMENT 1gm PACKET TP ONE ×2 (02:34→03:21)
[2017-07-15] MEDS ORDERED: KETOROLAC 30 MG/ML INJECTION IVP ONE (03:08)
[2017-07-15] MEDS ORDERED: NITROGLYCERIN 0.4 MG SUBLINGUAL TABLET SL PRN (03:21)
[2017-07-15] MEDS ORDERED: GI COCKTAIL 30 ML PO ONE (03:33)
[2017-07-15] MEDS ORDERED: ACETAMINOPHEN 325 MG TABLET PO PRN (03:34)
[2017-07-15] MEDS ORDERED: MORPHINE SULFATE 2mg INJECTION IVP PRN (03:35)
[2017-07-15 03:37] VITALS: BMI 32.5
[2017-07-15] MEDS ORDERED: ENOXAPARIN 100 MG/ML INJECTION SQ SCH (03:45)
[2017-07-15] MEDS: TRAMADOL 50 MG TABLET PO PRN ×2 (04:07→09:01)
[2017-07-15 08:23] VITALS: BP 115/80; PULSE 79; RESP 20; TEMP 97.7; O2SAT 97
[2017-07-15] MEDS ORDERED: POM CLOPIDOGREL 75 MG TABLET PO SCH (09:15)
[2017-07-15] MEDS ORDERED: POM ASPIRIN *EC* 81 MG TABLET PO SCH (09:15)
[2017-07-15] MEDS ORDERED: PREGABALIN 25 MG CAPSULE PO SCH (09:15)
--- NOTE | 2017-07-15 11:53 | Cardiology History & Physical ---
History of Present Illness Chief complaint: Chest Pain HPI: Mr. Serna is a 47-year-old male who presented to the ER last night with c/o chest pain. He states that he developed sudden chest pain/pressure across his anterior chest. States there were no alleviating/exacerbating factors and no associating symptoms. He denies any SOA, N/V, diaphoresis. D/t his hx, he states he was scared and immediately came into the ER. He states that he now wonders if it has anything to do with a possible pancreatitis "flare" and that "they don't do anything about that for me except tell me to take in clears and my pain meds". He has a h/o prior coronary stenting 2006 by report. He also has a history of Brugada syndrome, however states that current vp [employer] does not believe the diagnosis and they're taking his defibrillator out in September, it is currently turned off. Patient does have a history of cath after 2006, stating that his stent was "blocked". He is also diabetic and states that he can never get in to see his PCP and that his last A1C was around 13 and no changes were made to his meds. ER notes show that pt states he was in [facility] a week a go for pancreatitis though he states during exam that he was last in [facility] years ago and is no longer allowed there after he had abd surgery d/t a cyst and with pancreatitis. States he was there for 4 months and ended up loosing his insurance and developed a large bill and was told he is no longer allowed in their hospital.Unsure on accuracy of his hx/details r/t. He does state he follows for cardiology and was just seen by him 2 weeks ago and told his heart was "just fine". He does also state that he has developed an anxiety disorder for which he takes Lorazepam. Other medical hx includes CVA, GERD, & CAD s/p PCI.s Review of Systems - Constitutional Constitutional: Absent: chills, fatigue, fever(s), headache(s), weakness - EENMT Eyes: Absent: change in vision Mouth/Throat: Absent: changes in swallowing - Cardiovascular Cardiovascular: Present: chest pain. Absent: syncope, dyspnea on exertion, orthopnea, edema - Respiratory Respiratory: Absent: dyspnea, dyspnea on exertion - Gastrointestinal Gastrointestinal: Absent: abdominal pain, constipation, diarrhea, nausea, vomiting - Genitourinary Genitourinary: Absent: difficulty urinating, flank pain, urinary frequency - Musculoskeletal Musculoskeletal: Absent: joint swelling, muscle weakness - Integumentary/Breasts Integumentary: Absent: rash, wounds - Neurological Neurological: Absent: dizziness, headache(s), weakness - Psychiatric Psychiatric: Present: anxiety - Endocrine Endocrine: Absent: palpitations PFSH Patient Stated Medical History Cerebrovascular Accident Yes Hearing Loss Yes Coronary Artery Disease Yes Other Cardiology BRUGADA SYNDROME Diabetes Mellitus Type 2 Yes Gastroesophageal Reflux Yes Disease Other GI Yes: pancreatitis last week, rusty hernia Hx Kidney Stones Yes MRSA Yes: 2007 Blood Transfusions Yes Clinic Medical History (Last Reviewed 05/24/17 @ 17:35 by Stepan Conroy MD) Chest pain, rule out acute myocardial infarction (Acute Medical) Diabetes (Chronic Medical) High cholesterol (Chronic Medical) Anxiety Disorder (Chronic Medical) Medical History Updates: By patient's report hypertension hypercholesterolemia Surgical History: heart stent, scapula bone spur removed, rusty knee arthroscopy, tonsillectomy, Family History: Family History (Last Reviewed 05/24/17 @ 17:35 by Stepan Conroy MD) Mother Heart attack Heart failure - Social History Smoking status: Former smoker Substance use type: does not use Alcohol intake frequency: does not drink Housing: house Household members: spouse, children service: No Current occupational status: disabled Does patient use chewing tobacco?: No Current residence: Apartment/Private Home Medications Home Medications Medication Instructions Recorded Confirmed Type Ativan (lorazepam) 1 mg tablet 1 mg PO Q12H PRN 05/25/17 07/15/17 History Glucophage (metformin) 1,000 mg 1,000 mg PO BID 05/25/17 07/15/17 History tablet Lantus (insulin glargine) 100 18 unit SQ HS ml 05/25/17 07/15/17 History unit/mL SQ Lipitor (atorvastatin) 10 mg tablet 80 mg PO HS 05/25/17 07/15/17 History Novolog (insulin aspart) 100 12 units SQ TID 05/25/17 07/15/17 History unit/mL Plavix (clopidogrel) 75 mg tablet 75 mg PO DAILY 05/25/17 07/15/17 History Prilosec (Omeprazole) 20 mg 20 mg PO DAILY 05/25/17 07/15/17 History capsule,delayed release Ultram (Tramadol) 50 mg tablet 50 mg PO PRN PRN 05/25/17 07/15/17 History aspirin 81 mg tablet,delayed 1 tab PO DAILY 05/25/17 07/15/17 History release cyclobenzaprine 5 mg tablet 5 mg PO PRN PRN 05/25/17 07/15/17 History Pregabalin Cap [Lyrica] 25 mg PO DAILY 07/15/17 07/15/17 History Allergies Allergy/AdvReac Type Severity Reaction Status Date / Time penicillin G Allergy Verified 07/15/17 01:56 Exam Vital signs: Temperature 97.7 F 07/15/17 08:22 Pulse Rate 79 07/15/17 08:22 Respiratory Rate 20 07/15/17 08:22 Blood Pressure 115/80 07/15/17 08:22 Pulse Oximetry 97 07/15/17 08:22 - Constitutional no acute distress - Routine HEENT Exam Head: Present: normocephalic Eye: Present: EOMI ENT: Present: mucous membranes moist - Routine Neck Exam Absent: JVD, carotid bruit, lymphadenopathy - Routine Respiratory Exam Present: CTA bilaterally. Absent: dyspnea, wheezes, crackles - Routine Cardiovascular Exam Present: RRR, no murmur. Absent: gallop, rubs, JVD - Routine Abdominal Exam Present: soft, normoactive bowel sounds, non distended - Routine Extremities Exam Present: no edema - Routine Skin Exam Present: intact, dry, warm, lesions. Absent: rash - Routine Neurological Exam Present: alert, oriented X3, moving all extremities, normal speech - Routine Psychiatric Exam Present: normal affect, normal thought process Results 07/15/17 01:45 07/15/17 01:45 Cardiac Enzymes 07/15/17 07/15/17 Range/Units 03:54 07:59 Troponin I < 0.012 < 0.012 (0-0.12) ng/ml Intake and Output 07/14/17 07/15/17 07/15/17 22:59 06:59 14:59 Other: Weight 94.4 kg 97 kg Patient Weight 07/16/17 06:59 Weight 97 kg - Imaging and Cardiology EKG results: report reviewed (NSR 93, no ischemic changes.) - EKG Interpretation EKG: sinus rhythm EKG interpretations - EKG EKG results cardiology: sinus rhythm Hospital Course This is a general summary of the patient's hospital course. For more details refer to the complete medical record. Time spent with patient: 25 - 35 minutes DVT Prophylaxis: Lovenox GI Prophylaxis: other (Omeprazole) Assessment and Plan - Attestation Attestation Narrative: 07/17/17 13:53 Recommendation After examining the patient I agree with the above assessment. I am involved in the formulation of the patient's plan of care. - Assessment and Plan (1) Chest pain, rule out acute myocardial infarction Status: Resolved ECG: NSR 93, no ischemic changes. Troponin trend negative. SR on tele. Con't ASA, Plavix and statin. SQ Lovenox. (2) CAD S/P percutaneous coronary angioplasty Status: Chronic Con't ASA, Plavix and statin. (3) History of CVA (cerebrovascular accident) Status: Acute Con't Plavix and ASA. (4) Hyperlipidemia Status: Chronic Con't ASA and statin. (5) Brugada syndrome Status: Acute Pt reports. ? States ICD turned off and being removed in September. Con't to follow with . (6) Pancreatitis Status: Acute No concerning findings this stay. Con't instructions per PCP. PCP manages. (7) Type 2 diabetes mellitus, uncontrolled Status: Chronic States last A1C around 13. Con't current regimen. PCP manages. (8) GERD (gastroesophageal reflux disease) Status: Chronic Con't Omeprazole. (9) DVT prophylaxis Status: Acute Lovenox.
[2017-07-15] MEDS ORDERED: POM INSULIN ASPART 100unit/ml INJECTION SQ SCH (12:00)
--- NOTE | 2017-07-15 12:36 | Discharge Summary ---
<Jia Brannon R - Last Filed: 07/15/17 12:57> Discharge Information Date of admission: 07/15/17 02:48 Anticipated date of discharge: 07/15/17 Attending Physician: Charlie Eli MD - Discharge Diagnosis (1) Chest pain, rule out acute myocardial infarction Status: Resolved (2) CAD S/P percutaneous coronary angioplasty Status: Chronic (3) History of CVA (cerebrovascular accident) Status: Acute (4) Hyperlipidemia Status: Chronic (5) Brugada syndrome Status: Acute (6) Pancreatitis Status: Acute (7) Type 2 diabetes mellitus, uncontrolled Status: Chronic (8) GERD (gastroesophageal reflux disease) Status: Chronic (9) DVT prophylaxis Status: Acute Chest Pain r/o ACS - Laboratory Labs: Laboratory Results WBC 5.8 T/MM3 (4.5-11.0) 07/15/17 01:45 RBC 4.84 M/MM3 (4.50-5.90) 07/15/17 01:45 Hgb 12.9 GM/DL (13.5-17.5) L 07/15/17 01:45 Hct 39.4 % (41-53) L 07/15/17 01:45 MCV 81.4 UM3 (80-100) 07/15/17 01:45 MCH 26.7 UUG (26-34) 07/15/17 01:45 MCHC 32.7 GM/DL (31-37) 07/15/17 01:45 RDW Std Deviation 39.3 FL (36.9-50.2) 07/15/17 01:45 Plt Count 176 T/MM3 (130-400) 07/15/17 01:45 MPV 11.6 UM3 (9.4-12.4) 07/15/17 01:45 Immature Gran % (Auto) 0.3 % (0.0-0.5) 07/15/17 01:45 Neut % (Auto) 46.4 % (33-66) 07/15/17 01:45 Lymph % (Auto) 34.5 % (23-45) 07/15/17 01:45 [place] % (Auto) 12.4 % (0-9.0) H 07/15/17 01:45 Eos % (Auto) 5.2 % (0-4) H 07/15/17 01:45 Baso % (Auto) 1.2 % (0-2) 07/15/17 01:45 Neut # (Auto) 2.7 T/MM3 (1.8-7.7) 07/15/17 01:45 Lymph # (Auto) 2.0 T/MM3 (1-4.8) 07/15/17 01:45 [place] # (Auto) 0.7 T/MM3 (0-0.8) 07/15/17 01:45 Eos # (Auto) 0.3 T/MM3 (0-0.5) 07/15/17 01:45 Baso # (Auto) 0.1 T/MM3 (0-0.2) 07/15/17 01:45 Abs Immat Gran (auto) 0.02 T/MM3 (0.00-0.03) 07/15/17 01:45 D-Dimer < 150 NG/ML (0-230) 07/15/17 01:45 Turbidity < 20 (0-20) 07/15/17 01:45 Sodium 140 MEQ/L (134-144) 07/15/17 01:45 Potassium 3.8 MEQ/L (3.6-5) 07/15/17 01:45 Chloride 103 MEQ/L (98-107) 07/15/17 01:45 Carbon Dioxide 26 MEQ/L (22-30) 07/15/17 01:45 Anion Gap 11 MEQ/L (5-15) 07/15/17 01:45 BUN 17.0 MG/DL (9-20) 07/15/17 01:45 Creatinine 0.6 MG/DL (0.8-1.5) L 07/15/17 01:45 GFR Calculation 143 07/15/17 01:45 BUN/Creatinine Ratio 28 RATIO (6-26) H 07/15/17 01:45 Glucose 219 MG/DL (75-110) H 07/15/17 01:45 Glucometer 278 mg/dL (65-110) 07/15/17 11:37 Calculated Osmolality 278 MOSM/KG (261-280) 07/15/17 01:45 Calcium 9.0 MG/DL (8.4-10.2) 07/15/17 01:45 Magnesium 1.8 MG/DL (1.6-2.3) 07/15/17 01:45 Total Bilirubin 0.40 MG/DL (0.20-1.30) 07/15/17 01:45 Icterus Index < 2 (0-7) 07/15/17 01:45 AST 25 U/L (17-59) 07/15/17 01:45 ALT 47 U/L (21-72) 07/15/17 01:45 Alkaline Phosphatase 159 U/L (38-126) H 07/15/17 01:45 Troponin I < 0.012 ng/ml (0-0.12) 07/15/17 07:59 B-Natriuretic Peptide 21.2 pg/mL (0-175) 07/15/17 01:45 Total Protein 7.5 G/DL (6.3-8.2) 07/15/17 01:45 Albumin 4.1 G/DL (3.5-5.0) 07/15/17 01:45 Globulin 3.4 G/DL (2.4-3.6) 07/15/17 01:45 Albumin/Globulin Ratio 1.2 RATIO (1.1-2.2) 07/15/17 01:45 Lipase 153 U/L (23-300) 07/15/17 01:45 TSH 4.00 MIU/L (0.47-4.68) 07/15/17 01:45 Specimen Hemolysis < 15 (0-25) 07/15/17 07:59 Cardiac Enzymes 07/15/17 07/15/17 07/15/17 Range/Units 01:45 03:54 07:59 AST 25 (17-59) U/L Troponin I < 0.012 < 0.012 < 0.012 (0-0.12) ng/ml B-Natriuretic Peptide 21.2 (0-175) pg/mL Coagulation 07/15/17 Range/Units 01:45 B-Natriuretic Peptide 21.2 (0-175) pg/mL CBC 07/15/17 Range/Units 01:45 WBC 5.8 (4.5-11.0) T/MM3 RBC 4.84 (4.50-5.90) M/MM3 Hgb 12.9 L (13.5-17.5) GM/DL Hct 39.4 L (41-53) % Plt Count 176 (130-400) T/MM3 Neut # (Auto) 2.7 (1.8-7.7) T/MM3 Lymph # (Auto) 2.0 (1-4.8) T/MM3 [place] # (Auto) 0.7 (0-0.8) T/MM3 Eos # (Auto) 0.3 (0-0.5) T/MM3 Baso # (Auto) 0.1 (0-0.2) T/MM3 Comprehensive Metabolic Panel 07/15/17 Range/Units 01:45 Sodium 140 (134-144) MEQ/L Potassium 3.8 (3.6-5) MEQ/L Chloride 103 (98-107) MEQ/L Carbon Dioxide 26 (22-30) MEQ/L BUN 17.0 (9-20) MG/DL Creatinine 0.6 L (0.8-1.5) MG/DL Glucose 219 H (75-110) MG/DL Calcium 9.0 (8.4-10.2) MG/DL AST 25 (17-59) U/L ALT 47 (21-72) U/L Alkaline Phosphatase 159 H (38-126) U/L Total Protein 7.5 (6.3-8.2) G/DL Albumin 4.1 (3.5-5.0) G/DL Intake and Output 07/14/17 07/15/17 07/15/17 22:59 06:59 14:59 Other: Weight 94.4 kg 97 kg Patient Weight 07/16/17 06:59 Weight 97 kg - Radiology Radiology: CXR: no acute cardiopulmonary findings. History of Present Illness HPI: Mr. Serna is a 47-year-old male who presented to the ER last night with c/o chest pain. He states that he developed sudden chest pain/pressure across his anterior chest. States there were no alleviating/exacerbating factors and no associating symptoms. He denies any SOA, N/V, diaphoresis. D/t his hx, he states he was scared and immediately came into the ER. He states that he now wonders if it has anything to do with a possible pancreatitis "flare" and that "they don't do anything about that for me except tell me to take in clears and my pain meds". He has a h/o prior coronary stenting 2006 by report. He also has a history of Brugada syndrome, however states that current [employer] administrator does not believe the diagnosis and they're taking his defibrillator out in September, it is currently turned off. Patient does have a history of cath after 2006, stating that his stent was "blocked". He is also diabetic and states that he can never get in to see his PCP and that his last A1C was around 13 and no changes were made to his meds. ER notes show that pt states he was in [facility] a week a go for pancreatitis though he states during exam that he was last in [facility] years ago and is no longer allowed there after he had abd surgery d/t a cyst and with pancreatitis. States he was there for 4 months and ended up loosing his insurance and developed a large bill and was told he is no longer allowed in their hospital.Unsure on accuracy of his hx/details r/t. He does state he follows for cardiology and was just seen by him 2 weeks ago and told his heart was "just fine". He does also state that he has developed an anxiety disorder for which he takes Lorazepam. Other medical hx includes CVA, GERD, & CAD s/p PCI.s Hospital Course This is a general summary of the patient's hospital course. For more details refer to the complete medical record. Hospital course: Mr. Serna was admitted last night with sudden onset CP. Have r/o ACS with negative troponin x3 and no ECG changes. VSS have remained stable. He is wanting to go home and had threatened this AM to leave AMA. He feels there is nothing wrong with his heart and now questions if pain was r/t his pancreatitis. He states he will call 's office Monday to set up f/u if they deem necessary and that he will astablish with a new PCP or f/u with current regarding his pancreatitis and DM. He denies any CP, palpitations, SOA, N/V, diaphoresis. No ECG/tele changes, VSS and troponin negative x3. Time spent with patient: 25 - 35 minutes DVT Prophylaxis: Lovenox GI Prophylaxis: other (Omeprazole) Exam Vital signs: Temperature 97.7 F 07/15/17 08:22 Pulse Rate 79 07/15/17 08:22 Respiratory Rate 20 07/15/17 08:22 Blood Pressure 115/80 07/15/17 08:22 Pulse Oximetry 97 07/15/17 08:22 - Constitutional no acute distress - Routine HEENT Exam Head: Present: normocephalic Eye: Present: EOMI - Routine Neck Exam Absent: JVD, carotid bruit, lymphadenopathy - Routine Respiratory Exam Present: CTA bilaterally. Absent: dyspnea, rhonchi, stridor, wheezes, crackles - Routine Cardiovascular Exam Present: RRR, no murmur. Absent: gallop, rubs, JVD - Routine Abdominal Exam Present: soft, non distended, non tender - Routine Extremities Exam Present: no edema, full ROM, pulses intact. Absent: cyanosis, edema - Routine Skin Exam Present: intact, dry, warm. Absent: rash - Routine Neurological Exam Present: alert, oriented X3, moving all extremities, normal speech - Routine Psychiatric Exam Present: normal affect, cooperative Results 07/15/17 01:45 07/15/17 01:45 Cardiac Enzymes 07/15/17 07/15/17 Range/Units 03:54 07:59 Troponin I < 0.012 < 0.012 (0-0.12) ng/ml Intake and Output 07/14/17 07/15/17 07/15/17 22:59 06:59 14:59 Other: Weight 94.4 kg 97 kg Patient Weight 07/16/17 06:59 Weight 97 kg - Imaging and Cardiology EKG results: report reviewed (NSR 68, no ischemic changes.) - EKG Interpretation EKG: sinus rhythm Discharge Plan - Med Rec/Dispo Referrals/Follow Up: Calixto Lane MD [Physician] - [place] Instructions: Chest Pain (DC), Chest Pain (GEN) Additional Instructions: F/u with current PCP of new PCP re:pancreatitis and Diabetes. Prescriptions: Continue Pregabalin Cap [Lyrica] 25 mg PO DAILY Lipitor (atorvastatin) 10 mg tablet 80 mg PO HS Prilosec (Omeprazole) 20 mg capsule,delayed release 20 mg PO DAILY Glucophage (metformin) 1,000 mg tablet 1,000 mg PO BID Plavix (clopidogrel) 75 mg tablet 75 mg PO DAILY Ultram (Tramadol) 50 mg tablet 50 mg PO PRN PRN PRN Reason: Pain cyclobenzaprine 5 mg tablet 5 mg PO PRN PRN PRN Reason: Muscle Cramps Novolog (insulin aspart) 100 unit/mL 12 units SQ TID Lantus (insulin glargine) 100 unit/mL SQ 18 unit SQ HS ml Ativan (lorazepam) 1 mg tablet 1 mg PO Q12H PRN PRN Reason: Anxiety aspirin 81 mg tablet,delayed release 1 tab PO DAILY - Disposition 01 Discharged Home, Self-Care - Dismissal Complete Discharge Instructions are:: Complete <Charlie Eli - Last Filed: 07/17/17 13:54> Discharge Information Date of admission: 07/15/17 02:48 Attending Physician: Charlie Eli MD - Discharge Diagnosis (1) Chest pain, rule out acute myocardial infarction Status: Resolved (2) CAD S/P percutaneous coronary angioplasty Status: Chronic (3) History of CVA (cerebrovascular accident) Status: Acute (4) Hyperlipidemia Status: Chronic (5) Brugada syndrome Status: Acute (6) Pancreatitis Status: Acute (7) Type 2 diabetes mellitus, uncontrolled Status: Chronic (8) GERD (gastroesophageal reflux disease) Status: Chronic (9) DVT prophylaxis Status: Acute Hospital Course This is a general summary of the patient's hospital course. For more details refer to the complete medical record. Exam Vital signs: Temperature 97.7 F 07/15/17 08:22 Pulse Rate 79 07/15/17 08:22 Respiratory Rate 20 07/15/17 08:22 Blood Pressure 115/80 07/15/17 08:22 Pulse Oximetry 97 07/15/17 08:22 Results 07/15/17 01:45 07/15/17 01:45 Attestation Narriative - Attestation Attestation Narrative: 07/17/17 13:54 Recommendation After examining the patient I agree with the above assessment. I am involved in the formulation of the patient's plan of care.
[2017-07-15] MEDS ORDERED: METFORMIN 1000 MG PO SCH (17:30)
[2017-07-15] MEDS ORDERED: INSULIN GLARGINE 100 UNIT/ML SQ SCH (21:00)
[2017-07-15] MEDS ORDERED: ATORVASTATIN 80 MG PO SCH (21:00)
[2017-07-16] MEDS ORDERED: OMEPRAZOLE 20 MG CAPSULE PO SCH (06:30)
--- NOTE | 2017-07-16 08:50 | XRay Report ---
Indication: Central chest pain starting receiving PROCEDURE: XR chest 1V: Encounter: Initial Comparison: None FINDINGS: The lungs are clear. There is no abnormal airspace opacity, pleural effusion or pneumothorax identified. The heart size, pulmonary vasculature and mediastinum are within normal limits. Left pacemaker defibrillator. No significant skeletal abnormality is seen. IMPRESSION: No acute cardiopulmonary abnormality. .
== END 2017-07-15 13:30 | disposition home or self-care (01) ==
LOC: ED 01:31 → SRG 01:31
PROVIDERS: ADMIT Internal Medicine Cardiovascular Disease; ATTEND Internal Medicine Cardiovascular Disease